=== PATIENT | female | born 1955 | race Caucasian/White ===

== ENCOUNTER → 2018-12-13 | Outpatient (REF) | payer OTHER ==
[2018-12-13 18:48] LABS: HEMOGLOBIN A1c 9.8 %
[2018-12-13 19:08] LABS: FOLATE > 24.0 NG/ML; FREE T4 1.04 NG/DL (0.76-1.46); RHEUMATOID FACTOR QUANT < 10.0 IU/ML (<15.0); TOTAL PROTEIN 7.4 GM/DL (6.4-8.2); VITAMIN B12 LEVEL 434 PG/ML
[2018-12-14 13:19] LABS: ALBUMIN % 58.4 % (55.8-66.1); ALPHA-1-GLOBULIN % 3.9 % (2.9-4.9); ALPHA-2-GLOBULINS % 11.8 % (7.1-11.8); BETA-1-GLOBULINS % 7.2 % (4.7-7.2); BETA-2-GLOBULINS % 4.7 % (3.2-6.5)
[2018-12-14 13:20] LABS: ALBUMIN 4.32 GM/DL (3.29-5.55); ALPHA-1-GLOBULINS 0.29 GM/DL (0.17-0.41); ALPHA-2-GLOBULINS 0.87 GM/DL (0.42-0.99); BETA-1-GLOBULINS 0.53 GM/DL (0.28-0.60); BETA-2-GLOBULINS 0.35 GM/DL (0.19-0.55); GAMMA GLOBULINS 1.04 GM/DL (0.65-1.58)
[2018-12-18 14:30] LABS: ANTINUCLEAR ANTIBODIES DIRECT Negative (Negative); VITAMIN B1 LEVEL WHOLE BLOOD 185.2 nmol/L (66.5-200.0); VITAMIN B6,PYRIDOXAL PHOSPHATE 41.7 ug/L (2.0-32.8); VITAMIN E(ALPHA TOCOPHEROL) 21.1 mg/L (9.0-29.0); VITAMIN E(GAMMA TOCOPHEROL) 3.1 mg/L (0.5-4.9)
[2018-12-22 12:43] LABS: DRVV SCREEN 36.5 SEC
[2018-12-22 12:54] LABS: PTT LUPUS TYPE ANTICOAG SCREEN 0.9 (0-1.2)
== END ==
LOC: M LABNEURO 13:21
PROVIDERS: ATTEND Psychiatry & Neurology Neurology
DX: G62.9 Polyneuropathy, unspecified (principal)

== ENCOUNTER → 2020-10-22 | Outpatient (CLI) | payer MEDICARE, OTHER | LOC: M WUC 14:02 | PROVIDERS: ATTEND Physician Assistant | DX: M79.672 Pain in left foot (principal) ==